=== PATIENT | male | born 1940 | race Caucasian/White ===

== ENCOUNTER → 2018-12-16 10:27 | Outpatient (CLI) | payer MEDICARE, OTHER, SELFPAY ==
--- NOTE | 2018-12-16 | DI.NM.S_ITS ---
PROCEDURE: [place] BONE SCAN WHOLE BODY RADIOPHARMACEUTICAL: 22.0 mCi Tc-99m MDP IV. INDICATIONS: PROSTATE CANCER TECHNIQUE: Delayed whole-body scintigrams were obtained approximately 3-4 hours after intravenous injection of radiotracer. Anterior and posterior views were acquired from vertex to feet. Additional left and right oblique views of the pelvis were obtained. COMPARISON: [place], [place], [place] BONE SCAN WHOLE BODY, 07/21/2018, 14:34. [facility], CT, CT CHEST ABD PEL W CON, 12/16/2018, 11:27. [place], [place], [place] BONE SCAN WHOLE BODY, 04/08/2018, 12:52. FINDINGS: Right paranasal tracer uptake is unchanged. Tracer activity at the right AC joint is most likely degenerative and grossly unchanged. There is also lower cervical presumed discogenic tracer uptake. No suspicious tracer activity. Physiologic tracer uptake seen within the kidneys and bladder. There is also bilateral hand and ankle as well as knee tracer activity which is most likely arthritic and appears slightly progressed. There is scattered presumed discogenic and degenerative facet tracer activity involving the thoracic and lumbar spine as before. IMPRESSION: Overall, grossly unchanged examination with no specific scintigraphic evidence for osseous metastatic disease. Dictated by: Troy Chen M.D. on 12/16/2018 at 17:06 Approved by: Troy Chen M.D. on 12/16/2018 at 17:10
--- NOTE | 2018-12-16 | DI.CT.S_ITS ---
PROCEDURE: CT CHEST ABD PEL W CON INDICATIONS: PROSTATE CANCER TECHNIQUE: After the administration of oral and intravenous contrast, 5 mm thick sections acquired from the lung apices to the symphysis. 5 mm coronal and sagittal reformats were performed, with additional 7 mm coronal MIP reformats through the lungs. For radiation dose reduction, the following was used: automated exposure control, adjustment of mA and/or kV according to patient size. COMPARISON: [facility], CT, CT CHEST ABDOMEN PELVIS WITH CONTRAST, 07/21/2018, 12:04. FINDINGS: Image quality: Excellent. CHEST: Lungs and pleura: Dependent atelectasis/scarring in posterior aspect of bilateral lower lobe is seen. 8mm subpleural sub-solid nodule in posterior-lateral right lung base is unchanged in size and appearance series 3 image 48. No new pulmonary nodule is seen. No acute airspace opacities. No pleural effusions or pneumothorax. Central and peripheral airways appear patent and normal in caliber. Mediastinum: Heart size is enlarged. No pericardial effusion. Enlarged lymph nodes are noted in mediastinal and bilateral hilar region measures up to 1.3 cm in short axis diameter a right paratracheal space and up to 1.5 cm in short axis diameter in right hilar region not significantly changed from prior study. Thoracic aorta and central pulmonary arteries are normal in size. Atherosclerotic calcifications throughout coronary vessels and thoracic aorta is seen. Pacemaker leads are noted in the region of right atrium and right ventricle. Esophagus is normal in caliber. There is a small hiatal hernia. Chest wall: No axillary or supraclavicular adenopathy by size criteria. Thyroid gland is within normal limits.. ABDOMEN: Solid organs: Liver is normal in size and enhancement. Gallbladder contains a single calcified stone with no gallbladder wall thickening or pericholecystic fluid.. Biliary system is non dilated. Pancreas enhances normally. Spleen is normal in size and enhancement. No adrenal nodules. Kidneys demonstrate normal size and enhancement, without hydronephrosis. Multiple bilateral renal cysts are seen, unchanged from prior study. Peritoneum and bowel: Bowel loops demonstrate normal wall thickness and caliber. No free fluid or air. Nodes and vessels: No retroperitoneal or mesenteric adenopathy by size criteria. Aorta and inferior vena cava are normal in size. Miscellaneous: No ventral hernias. PELVIS: Genitourinary: Bladder wall thickness is normal. Miscellaneous: No inguinal hernias or adenopathy. 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 Ankylosis of bilateral sacroiliac joints are again seen and unchanged. No suspicious bony lesions. No vertebral body compression fracture. IMPRESSION: 1. Stable sub-solid nodule in right lower lobe. No new pulmonary nodular mass is seen. 2. Mediastinal and right hilar mildly enlarged lymph nodes not significantly changed from prior study. 3. Cholelithiasis, no CT evidence of acute cholecystitis. 4. No definite bony metastasis is seen, please correlate with nuclear medicine bone scan findings. Dictated by: Ralph Roa M.D. on 12/16/2018 at 12:38 Approved by: Ralph Roa M.D. on 12/16/2018 at 13:33
== END ==
PROVIDERS: PCP Family Medicine; Visit Provider Specialist
DX: C61 Malignant neoplasm of prostate (principal); R91.1 Solitary pulmonary nodule; R59.9 Enlarged lymph nodes, unspecified; K80.80 Other cholelithiasis without obstruction
CPT/HCPCS: 71260; 74177; 78306; A9503; Q9967

== ENCOUNTER → 2019-07-02 08:52 | Outpatient (CLI) | payer MEDICARE, OTHER, SELFPAY ==
--- NOTE | 2019-07-02 | DI.NM.S_ITS ---
PROCEDURE: [place] BONE SCAN WHOLE BODY RADIOPHARMACEUTICAL: 21.8 mCi Tc-99m MDP IV. INDICATIONS: Malignant neoplasm of prostate TECHNIQUE: Delayed whole-body scintigrams were obtained approximately 3-4 hours after intravenous injection of radiotracer. Anterior and posterior views were acquired from vertex to feet. COMPARISON: [facility], CT, CT CHEST ABD PEL W CON, 12/16/2018, 11:27. [place], [place], [facility] WHOLE BODY BONE, 12/25/2017, 9:44. [place], [place] BONE SCAN WHOLE BODY, 04/08/2018, 12:52. [facility], CT, CT CHEST ABD PEL W CON, 07/02/2019, 9:42. [place], [place] BONE SCAN WHOLE BODY, 07/21/2018, 14:34. [place], [place] BONE SCAN WHOLE BODY, 12/16/2018, 14:02. FINDINGS: Increased uptake in the right paranasal air is unchanged and presumably secondary to paranasal sinus disease. No lesions are identified in calvarium, sternum, clavicles, scapulae, ribs, bony pelvis, and visualized shafts of the long bones. There are foci of increased uptake in cervical, thoracic and lumbar spine with distribution indistinguishable from degenerative disc and facet disease; early metastasis to spine could be obscured by degenerative changes. There are foci of increased periarticular activity involving shoulders, sternoclavicular joints, wrists, hands, hips, SI joints, knees, ankles and feet, compatible with degenerative/arthritic changes. IMPRESSION: Stable scan. No definitive osseous metastasis. Dictated by: Ingrid Mccall M.D. on 07/02/2019 at 14:26 Approved by: Ingrid Mccall M.D. on 07/06/2019 at 7:38
--- NOTE | 2019-07-02 | DI.CT.S_ITS ---
PROCEDURE: CT CHEST ABD PEL W CON INDICATIONS: Malignant neoplasm of prostate TECHNIQUE: After the administration of oral and intravenous contrast, 5 mm thick sections acquired from the lung apices to the symphysis. 5 mm coronal and sagittal reformats were performed, with additional 7 mm coronal MIP reformats through the lungs. For radiation dose reduction, the following was used: automated exposure control, adjustment of mA and/or kV according to patient size. COMPARISON: [place], [place], [place] BONE SCAN WHOLE BODY, 12/16/2018, 14:02. [place], [place], [place] BONE SCAN WHOLE BODY, 07/21/2018, 14:34. [facility], CT, CT CHEST ABDOMEN PELVIS WITH CONTRAST, 07/21/2018, 12:04. [facility], CT, CT CHEST ABD PEL WO CON, 04/08/2018, 9:23. [facility], [place], [place] WHOLE BODY BONE, 12/25/2017, 9:44. [facility], CT, CT CHEST ABD PEL W CON, 12/16/2018, 11:27. FINDINGS: Image quality: Excellent. CHEST: Lungs and pleura: No acute consolidation. Scattered scarring/atelectasis. Previously described sub-solid nodule involving the right lung bases less conspicuous or potentially resolved. No pleural effusions or pneumothorax. Central and peripheral airways appear patent and normal in caliber. Mediastinum: Heart size is enlarged. Coronary artery calcifications are present. No pericardial effusion. Unchanged appearance of mildly enlarged right hilar and mediastinal lymph nodes as before, since 12/16/18. Thoracic aorta and central pulmonary arteries are normal in size. Esophagus is normal in caliber. No hiatal hernia. Chest wall: No axillary or supraclavicular adenopathy by size criteria. Thyroid gland unremarkable. ABDOMEN: Solid organs: Diffuse fatty infiltration of the liver. The heart Gallbladder contracted otherwise unremarkable. Biliary system is non dilated. Pancreas enhances normally. Spleen is normal in size and enhancement. No adrenal nodules. Kidneys demonstrate normal size and enhancement, without hydronephrosis. Bilateral renal cysts are present, although some of these are technically too small to characterize accurately. No definite interval change. Peritoneum and bowel: Bowel loops demonstrate normal wall thickness and caliber. No free fluid or air. Nodes and vessels: No retroperitoneal or mesenteric adenopathy by size criteria. Aorta and inferior vena cava are normal in size. Miscellaneous: Fat-containing umbilical hernia PELVIS: Genitourinary: Bladder wall thickness is normal. Prostate brachytherapy seeds. Miscellaneous: No inguinal hernias or adenopathy. Bones: No suspicious bony lesions. No vertebral body compression fractures. Unchanged presumed bone island in the left acetabulum. Diffuse spondylosis and facet disease. IMPRESSION: Overall, grossly stable examination. Interval resolution of of previously seen right lower lobe sub-solid pulmonary nodule. Unchanged mediastinal and right hilar mildly large lymph nodes. Additional chronic and incidental findings as above. Dictated by: Troy Chen M.D. on 07/02/2019 at 10:47 Approved by: Troy Chen M.D. on 07/02/2019 at 11:00
== END ==
PROVIDERS: Family Provider Family Medicine; PCP Family Medicine; Visit Provider Specialist
DX: C61 Malignant neoplasm of prostate (principal); I25.10 Atherosclerotic heart disease of native coronary artery without angina pectoris; N28.1 Cyst of kidney, acquired; R59.0 Localized enlarged lymph nodes; I51.7 Cardiomegaly; K42.9 Umbilical hernia without obstruction or gangrene; M47.9 Spondylosis, unspecified
CPT/HCPCS: 71260; 74177; 78306; A9503; Q9967

== ENCOUNTER → 2020-12-08 09:59 | Outpatient (CLI) | payer MEDICARE, OTHER, SELFPAY ==
--- NOTE | 2020-12-08 10:00 | DI.NM.S_ITS ---
PROCEDURE: [place] BONE SCAN WHOLE BODY RADIOPHARMACEUTICAL: 21.1 mCi Tc-99m MDP IV. INDICATIONS: Prostate cancer TECHNIQUE: Delayed whole-body scintigrams were obtained approximately 3-4 hours after intravenous injection of radiotracer. Anterior and posterior views were acquired from vertex to feet. Additional left and right oblique views of the pelvis were obtained. COMPARISON: [place], [place], PET WHOLE BODY BONE, 12/25/2017, 9:44. [place], [place] BONE SCAN WHOLE BODY, 04/08/2018, 12:52. [place], [place] BONE SCAN WHOLE BODY, 07/21/2018, 14:34. [place] BONE SCAN WHOLE BODY, 12/16/2018, 14:02. [place] BONE SCAN WHOLE BODY, 07/02/2019, 12:22. [facility], CT, CT CHEST ABD PEL W CON, 12/08/2020, 10:16. FINDINGS: Increased uptake in the right maxillary area appears unchanged. 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 No lesions are identified in sternum, clavicles, scapulae, ribs, bony pelvis, and visualized shafts of the long bones. There are foci of mildly increased uptake in cervical, thoracic and lumbar spine with distribution indistinguishable from degenerative disc and facet disease; early metastasis to spine could be obscured by degenerative changes. Degenerative/arthritic changes as previously noted. IMPRESSION: 1. Stable bone scan. No definitive scintigraphic findings to suggest osseous metastasis. Dictated by: Ingrid Mccall M.D. on 12/08/2020 at 16:31 Approved by: Ingrid Mccall M.D. on 12/08/2020 at 17:30
--- NOTE | 2020-12-08 10:00 | DI.CT.S_ITS ---
PROCEDURE: CT CHEST ABD PEL W CON INDICATIONS: Prostate Cancer TECHNIQUE: After the administration of intravenous contrast, 5 mm thick sections acquired from the lung apices to the symphysis. 5 mm coronal and sagittal reformats were performed, with additional 7 mm MIP reformats through the lungs. For radiation dose reduction, the following was used: automated exposure control, adjustment of mA and/or kV according to patient size. COMPARISON: [facility], CT, CT CHEST ABDOMEN PELVIS WITH CONTRAST, 07/21/2018, 12:04. [facility], CT, CT CHEST ABD PEL WO CON, 04/08/2018, 9:23. [facility], CT, CT CHEST ABD PEL W CON, 07/02/2019, 9:42. [facility], [place], [place] BONE SCAN WHOLE BODY, 12/08/2020, 14:20. [facility], CT, CT CHEST ABD PEL W CON, 12/16/2018, 11:27. FINDINGS: Image quality: Excellent. CHEST: Lungs and pleura: There is a 6 mm ground-glass nodule in the right middle lobe (series 2, image 176), not definitively seen on the last exam. Right middle lobe and lower lobe opacities are most likely atelectasis. There are bibasilar atelectasis. Subpleural septal thickening and mild pulmonary fibrosis in lower lobes bilaterally. No acute airspace opacities. No pleural effusions or pneumothorax. Central and peripheral airways appear patent and normal in caliber. Mediastinum: There is mediastinal and right hilar lymphadenopathy, unchanged compared to the last exam. A 1.6 x 2.5 cm right paratracheal lymph node is again identified. There is a 1.0 x 1.4 cm AP window lymph node. A 1.3 x 2.0 cm lymph node is noted in the is occult esophageal recess. Prominent right hilar lymph nodes are also unchanged. A cluster of right hilar lymph nodes measures 1.8 x 1.9 cm. Heart size is moderately increased. No pericardial effusion. Severe coronary artery calcifications. There is a cardiac pacemaker. Thoracic aorta and central pulmonary arteries are normal in size. Esophagus is normal in caliber. There is a small hiatal hernia. Chest wall: A cardiac pacemaker is noted in the left anterior chest. No axillary or supraclavicular adenopathy by size criteria. Thyroid gland is not . ABDOMEN: Solid organs: Liver is normal in size and enhancement. Gallbladder contains a calcified gallstone. Biliary system is non dilated. Pancreas enhances normally. Spleen is normal in size and enhancement. No adrenal nodules. Kidneys demonstrate normal size and enhancement, without hydronephrosis. Multiple renal cysts are present bilaterally. Peritoneum and bowel: Bowel loops demonstrate normal wall thickness and caliber. No free fluid or air. Nodes and vessels: No retroperitoneal or mesenteric adenopathy by size criteria. Aorta and inferior vena cava are normal in size. Miscellaneous: Small fat containing umbilical hernia. PELVIS: Genitourinary: Bladder wall is mildly thickened concentrically. There are metallic implants in prostate. Miscellaneous: No inguinal hernias or adenopathy. Bones: No suspicious bony lesions. No vertebral body compression fractures. Degenerative changes are noted in thoracic and lumbar spine. IMPRESSION: 1. Stable mediastinal and right hilar lymphadenopathy. 2. A 6 mm ground-glass nodule is present in the right middle lobe, not definitively seen on the last exam. Recommend a short-term follow-up CT in 3 months. 3. Please see the body of the report for other nonurgent incidental findings. Dictated by: Ingrid Mccall M.D. on 12/08/2020 at 17:05 Approved by: Ingrid Mccall M.D. on 12/08/2020 at 17:15
== END ==
PROVIDERS: Family Provider Family Medicine; PCP Family Medicine; Referring Provider Specialist; Visit Provider Specialist
DX: C61 Malignant neoplasm of prostate (principal); R59.0 Localized enlarged lymph nodes; R91.1 Solitary pulmonary nodule
CPT/HCPCS: 71260; 74177; 78306; A9503; Q9967

== ENCOUNTER → 2021-01-26 11:04 | Outpatient (CLI) | payer MEDICARE, OTHER, SELFPAY ==
[2021-01-26 11:27] LABS: BUN Creatinine Ratio 32.1 (6-22); Blood Urea Nitrogen 44 mg/dL (9-20); Carbon Dioxide 33 mmol/L (22-32); Chloride 101 mmol/L (98-107); Estimated Glomerular Filt Rate 49.9 mL/min (>60); Glucose 141 mg/dL (80-110); HEMOLYSIS < 15 (0-50); Potassium 4.4 mmol/L (3.4-5.1); Sodium 141 mmol/L (137-145)
--- NOTE | 2021-01-26 11:39 | DI.CT.S_ITS ---
PROCEDURE: CT CHEST W CON INDICATIONS: Malignant neoplasm of prostate TECHNIQUE: After the administration of intravenous contrast, 5 mm thick sections acquired from the pulmonary apices to the posterior costophrenic angles. 1 mm axial lung, 5 mm thick coronal and sagittal reformats and 7 mm axial MIP were acquired. For radiation dose reduction, the following was used: automated exposure control, adjustment of mA and/or kV according to patient size. COMPARISON: [facility], CT, CT CHEST ABD PEL WO CON, 04/08/2018, 9:23. [facility], CT, CT CHEST ABD PEL W CON, 07/02/2019, 9:42. [facility], CT, CT CHEST ABD PEL W CON, 12/08/2020, 10:16. FINDINGS: Image quality: Excellent. Lungs and pleura: Subtle 6 mm ground-glass nodule is in the inferior aspect of the right upper lobe just above the right minor fissure, unchanged compared to the prior study. (146). There is eventration of the right hemidiaphragm and mild fibrotic changes are present at the lower lobes medially and in the extreme lung bases. No acute air space opacities. No pleural effusions or pneumothorax. Central and peripheral airways are patent and normal in caliber. Mediastinum: Mediastinal adenopathy is redemonstrated. Right paratracheal lymph node is stable. Subcarinal and mild right hilar adenopathy is unchanged. Heart size is enlarged. Pacemaker leads are present. Dense coronary artery calcification. No pericardial effusion. Thoracic aorta and central pulmonary arteries are normal in size. Esophagus is normal in caliber. Tiny hiatal hernia. Bones and chest wall: No suspicious bony lesions. No vertebral body compression fractures. No axillary or supraclavicular adenopathy by size criteria. Thyroid gland is unremarkable . Abdomen: There is cholelithiasis. Bilateral renal cysts and a tiny punctate nonobstructing upper pole calcification in the left kidney are stable. Upper abdominal bowel loops are normal in caliber. IMPRESSION: 1. There is a stable subtle ground-glass nodule which can be identified as far back as 04/08/18 without appreciable change. 2. There is stable mediastinal adenopathy. 3. No new findings. Dictated by: Charleen Su M.D. on 01/26/2021 at 16:23 Approved by: Charleen Su M.D. on 01/26/2021 at 16:33
== END ==
PROVIDERS: PCP Family Medicine; Referring Provider Specialist; Visit Provider Specialist
DX: C61 Malignant neoplasm of prostate (principal); R94.4 Abnormal results of kidney function studies; R91.1 Solitary pulmonary nodule; R59.0 Localized enlarged lymph nodes; I25.10 Atherosclerotic heart disease of native coronary artery without angina pectoris; K80.20 Calculus of gallbladder without cholecystitis without obstruction; N28.1 Cyst of kidney, acquired; Z95.0 Presence of cardiac pacemaker
CPT/HCPCS: 36415; 71260; 80048; Q9967

== ENCOUNTER → 2021-04-13 10:23 | Outpatient (CLI) | payer MEDICARE, OTHER, SELFPAY ==
--- NOTE | 2021-04-13 10:25 | DI.NM.S_ITS ---
PROCEDURE: [place] BONE SCAN WHOLE BODY RADIOPHARMACEUTICAL: 21.4 mCi Tc-99m MDP IV. INDICATIONS: Prostate Cancer TECHNIQUE: Delayed whole-body scintigrams were obtained approximately 3-4 hours after intravenous injection of radiotracer. Anterior and posterior views were acquired from vertex to feet. Additional left and right oblique views of the were obtained. COMPARISON: [place], [place] BONE SCAN WHOLE BODY, 12/08/2020, 14:20. [place], [place] BONE SCAN WHOLE BODY, 07/02/2019, 12:22. FINDINGS: No change has developed over the comparison to nuclear medicine bone scans, 12/08/20 and 07/02/19. A small focus of sclerosis is seen within the right maxillary bone, considered and osteoma. IMPRESSION: No evidence of prostate metastatic disease. Degenerative changes are stable at the shoulders, hip joints, and asymmetric but stable at the ankle joint regions, right greater than left. Also, stable asymmetric uptake at the right maxillary bone wary small osteoma is again noted. Dictated by: Rudolph Claros M.D. on 04/13/2021 at 15:42 Approved by: Rudolph Claros M.D. on 04/13/2021 at 15:45
--- NOTE | 2021-04-13 11:27 | DI.CT.S_ITS ---
PROCEDURE: CT CHEST ABD PEL W CON INDICATIONS: Prostate Cancer TECHNIQUE: After the administration of oral and intravenous contrast, 5 mm thick sections acquired from the lung apices to the symphysis. 5 mm coronal and sagittal reformats were performed, with additional 7 mm coronal MIP reformats through the lungs. For radiation dose reduction, the following was used: automated exposure control, adjustment of mA and/or kV according to patient size. COMPARISON: [facility], CT, CT CHEST W CON, 01/26/2021, 12:03. [facility], [place], [place] BONE SCAN WHOLE BODY, 12/08/2020, 14:20. [facility], CT, CT CHEST ABD PEL W CON, 12/08/2020, 10:16. FINDINGS: Image quality: Excellent. CHEST: Lungs and pleura: Stable 6 mm ground-glass nodule in the right middle lobe (series 2, image 170). Right middle lobe, right lower lobe and lingula atelectasis. Subpleural septal thickening bilaterally. No acute airspace opacities. No pleural effusions or pneumothorax. Central and peripheral airways appear patent and normal in caliber. Mediastinum: There is mediastinal and right hilar lymphadenopathy, unchanged. [employer] nodes are listed as the following Right paratracheal lymph node: 1.6 x 2.5 cm. AP window lymph node: 1.0 x 1.4 cm Subcarinal lymph node: 1.8 cm. Right hilar lymph node: 1.8 cm Heart size is moderately increased. There is severe coronary artery calcification. There is a cardiac pacemaker. No pericardial effusion. Thoracic aorta and central pulmonary arteries are normal in size. Esophagus is normal in caliber. A small hiatal hernia is present. Chest wall: No axillary or supraclavicular adenopathy by size criteria. Thyroid gland is normal. ABDOMEN: Solid organs: There is hepatic steatosis. Liver is normal in size and enhancement. Gallbladder contains a calcified gallstone. Biliary system is non dilated. Pancreas enhances normally. Spleen is normal in size and enhancement. No adrenal nodules. Kidneys demonstrate normal size and enhancement, without hydronephrosis. A 2 mm nonobstructive stone is seen in the left kidney. There is a 4.4 cm simple exophytic cyst in the right kidney and smaller cysts in kidneys bilaterally. Peritoneum and bowel: Bowel loops demonstrate normal wall thickness and caliber. No free fluid or air. Nodes and vessels: No retroperitoneal or mesenteric adenopathy by size criteria. Aorta and inferior vena cava are normal in size. Miscellaneous: There is a small fat containing umbilical hernia. PELVIS: Genitourinary: Bladder wall thickness is normal. Metallic implants are seen in prostate. Miscellaneous: No inguinal hernias or adenopathy. Bones: No suspicious bony lesions. No vertebral body compression fractures. There are degenerative changes in thoracic and lumbar spine. IMPRESSION: 1. Stable mediastinal and right hilar lymphadenopathy. 2. Stable 6 mm ground-glass nodule in the right middle lobe. 3. Cholelithiasis. 4. Moderate cardiomegaly and severe coronary artery atherosclerosis. 5. A 2 mm nonobstructive left renal stone. 6. Bilateral renal cortical cysts. 7. Small hiatal hernia. Dictated by: Ingrid Mccall M.D. on 04/13/2021 at 12:40 Approved by: Ingrid Mccall M.D. on 04/13/2021 at 16:34
== END ==
PROVIDERS: PCP Family Medicine; Referring Provider Specialist; Visit Provider Specialist
DX: C61 Malignant neoplasm of prostate (principal); R59.0 Localized enlarged lymph nodes; R91.1 Solitary pulmonary nodule; K80.20 Calculus of gallbladder without cholecystitis without obstruction; I51.7 Cardiomegaly; I25.10 Atherosclerotic heart disease of native coronary artery without angina pectoris; N20.0 Calculus of kidney; N28.1 Cyst of kidney, acquired; K44.9 Diaphragmatic hernia without obstruction or gangrene
CPT/HCPCS: 71260; 74177; 78306; A9503; Q9967

== ENCOUNTER → 2021-07-30 10:46 | Outpatient (CLI) | payer MEDICARE, OTHER, SELFPAY ==
--- NOTE | 2021-07-30 10:49 | DI.CT.S_ITS ---
PROCEDURE: CT CHEST WO CON INDICATIONS: pulmonary nodule TECHNIQUE: Noncontrast 2.0-2.5 mm thick sections acquired from the pulmonary apices to the posterior costophrenic angles. 7 mm thick axial MIP and 5 mm coronal and sagittal reformats were then acquired. A low radiation dose technique was utilized. COMPARISON: [facility], CT, CT CHEST ABD PEL W CON, 04/13/2021, 12:02. FINDINGS: Image quality: Diagnostic, given the low radiation dose technique. Lungs and pleura: Stable 6 mm ground-glass opacity, actually located inferiorly in the right upper lobe, and not in the right middle lobe. Reference previous image 171/2 and current images 155/3 and 58/5. Unchanged 1 mm pulmonary nodule, posterior aspect of the right upper lobe, near the major fissure. No new or increasing pulmonary nodules. Mediastinum: Mild cardiomegaly. No pericardial effusion. Advanced coronary artery calcifications. Pacemaker. Stable mediastinal and right hilar adenopathy, possibly inflammatory in nature.. Thoracic aorta and central pulmonary arteries are normal in size. Esophagus is normal in caliber. Small hiatal hernia. Bones and chest wall: No suspicious bony lesions. No vertebral body compression fractures. No axillary or supraclavicular adenopathy by size criteria. Thyroid gland is unremarkable as visualized . Abdomen: Small gallstones are present in the gallbladder. IMPRESSION: 1. Stable 6 mm ground-glass opacity, inferior aspect of right upper lobe. 2. Advanced coronary artery calcifications. 3. No new or increasing pulmonary nodules. 4. Gallstones. Fleischner Society criteria for SOLID lung nodule followup. Nodule size (mm)Low-risk patientHigh-risk patient<6 (single or multiple)No routine followup.Optional CT at 12 months. 6-8 (single or multiple)CT at 6-12 months, then optional CT at 18-24 mo.CT at 6-12 months, then CT at 18-24 months. >8 (single)CT at 3 months, PET-CT, or biopsy. Same as for low-risk pts. >8 (multiple)CT at 3-6 months, then optional CT at 18-24 mo.CT at 3-6 months, then CT at 18-24 months. Fleischner Society criteria for SUB-SOLID lung nodule followup. Solitary pure ground-glass nodules<6 mm (ground glass or part solid)No followup needed. 6 mm or larger (ground glass)CT at 6-12 months to confirm persistence, then CT every 2 years until 5 years.6 mm or larger (part solid)CT at 3-6 months to confirm persistence, then annual CT until 5 years if unchanged and solid component remains <6 mm. Multiple sub-solid nodules<6 mmCT at 3-6 months, then CT consider at 2 & 4 years for high risk patients. [address] at 3-6 months. Subsequent management based on most suspicious lesions. Recommendations do not apply to lung cancer screening, patients with immunosuppression, or patients with known primary cancer. Dictated by: Dillon Wilks M.D. on 07/30/2021 at 12:24 Approved by: Dillon Wilks M.D. on 07/30/2021 at 12:33
== END ==
PROVIDERS: PCP Internal Medicine; Referring Provider Internal Medicine Hematology & Oncology; Visit Provider Internal Medicine Hematology & Oncology
DX: R91.1 Solitary pulmonary nodule (principal); I25.10 Atherosclerotic heart disease of native coronary artery without angina pectoris; K80.20 Calculus of gallbladder without cholecystitis without obstruction
CPT/HCPCS: 71250

== ENCOUNTER → 2022-02-20 14:08 | Outpatient (CLI) | payer MEDICARE, OTHER, SELFPAY ==
[2022-02-20 15:04] LABS: COVID19 -Nasal RAPID Negative (Negative)
== END ==
PROVIDERS: PCP Internal Medicine; Visit Provider Nurse Practitioner Family
DX: Z20.822 Contact with and (suspected) exposure to COVID-19 (principal)
CPT/HCPCS: 87635; C9803

== ENCOUNTER 2022-02-21 06:09 | Day surgery (SDC) | payer MEDICARE, OTHER, SELFPAY ==
[2022-02-19 07:39] VITALS: BMI 27.8
--- NOTE | 2022-02-21 | PATH_ITS ---
[facility] Accession Number: [id number] . 01 Material submitted: . thumb - RIGHT THUMB ARTHRITIS . 01 Diagnosis: Right Thumb Arthritis, Excision: Features of gouty tophus. No evidence of neoplasm. MRV 02/26/2022 1307 Local . 01 Electronically signed: . Nico Estrada MD, PhD, Pathologist NPI- [id number] . 01 Gross description: . Received in one part. . Received in formalin, labeled Crescencio Quinn and designated 1. Right thumb arthritis, is a 4.0 x 4.0 x 1.5 cm aggregate of multiple 1.5-3.5 cm portions of yellow-moore, irregular, rubbery tissue fragments with scattered areas of moore-white chalky debris. No additional lesions are identified. Expansion Envelope Maker Hand sections are submitted in cassette A1. (AMINATA:[id number]) /FRR 02/23/2022 1801 Local . 01 Pathologist provided ICD-10: M79.644, M10.9 . 01 CPT . 032579 Specimen Comment: A courtesy copy of this report has been sent to [phone], [phone] Specimen Comment: [id number] Performed at: 01 [facility] [address] [place] [address] [address] [facility]– [place], [place], [place] [id number] MD Jose Cruz Bethea MD Phone: [phone]
[2022-02-21 06:58] VITALS: BP 142/79; PULSE 60; RESP 16; TEMP 36.1; O2SAT 98; BMI 27.8
--- NOTE | 2022-02-21 07:33 | PM.PREOP ---
Pre-operative Note COVID-19 Criteria for continued procedure: Possibility delay results in more complex future surgery or treatment, Increased loss of function, Continuing or worsening of significant or severe pain and Delay expected to result in less-positive ultimate med/surg outcome Interval Note History & Physical reviewed/Exam performed by Physician: Yes Changes to H&P: No
[2022-02-21] MEDS: LACTATED RINGERS 1,000 ML 42 ML IV (07:36)
[2022-02-21] MEDS: CEFAZOLIN 2 GM/20 ML SYRINGE IV (07:52)
[2022-02-21] MEDS: BUPIVACAINE 0.5% (PF) 30 ML, EPINEPHrine 0.15 MG INJ (08:11)
--- NOTE | 2022-02-21 08:13 | SUR.OPER ---
Supine on padded OR bed, head on pillow, nonoperative arm secured on padded arm board at <90 degrees abduction, operative arm on hand table, legs uncrossed, safety belt at thigh, tape over blanket over lower legs.
[2022-02-21 09:31] VITALS: BP 120/74; PULSE 68; RESP 15; TEMP 36; O2SAT 88
[2022-02-21 09:35] VITALS: BP 121/73; PULSE 68; RESP 15; O2SAT 95
[2022-02-21 09:45] VITALS: BP 113/78; PULSE 59; RESP 15; O2SAT 94
[2022-02-21 09:50] VITALS: BP 115/63; PULSE 59; RESP 15; O2SAT 99
--- NOTE | 2022-02-21 09:51 | P.OP_ITS ---
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 Closure Type: primary Specimen(s): other (Gouty tophi sent to pathology) Applied: implant(s) (7 hole plate) Estimated Blood Loss (mL): 5 Tourniquet time (min): 79 Procedure in detail: On date of Service, patient was met in holding area where his operative site was signed and witnessed by the OR staff. Surgeries once again discussed with the patient and any remaining questions or concerns he had were answered fully. Patient was taken back to the operating theater and placed on the operating table in a supine position. Great care was taken to ensure that all bony prominences were appropriately padded. Well-padded tourniquet was placed up along the upper extremity. Time-out was performed verifying patient's name, procedure, and operative site. Right arm was prepped and draped in the normal sterile fashion. Dorsal incision was made centered over the MCP joint of thumb. Fifteen blade was used to incise through skin and fascial tissue. As mentioned above, patient had extensive g outy tophi involving the thumb. Large deposits both in the joint as well as dorsal to the joint involving soft tissue as well as the extensor tendons. Using the 15 blade sharp dissection and excision was performed removing the gouty tophi. Some of this was sent to pathology. Sharp dissection was used and 2 we were able to remove the majority of the gouty deposits. Rongeur was then used to debride out any remaining gouty deposits. Copious irrigation was used to irrigate to the soft tissue and joint removing as much of the gout as possible. Once we excised as much as the gout as possible, a bur was used to remove any remaining our articular surface to the MCP joint until we had good bleeding bony surfaces. The thumb was reduced with about 30? of flexion and a K-wire was placed for provisional fixation. C-arm was used to verify the position of the MCP joint for fusion. Once we were satisfied with the positioning, a 7 hole plate was bent to the appropriate shape and fixated to both the proximal phalanx as well as the metacarpal. Rongeur was used to take some bone graft from dorsal aspect of the MCP joint. This bone graft was then packed in around joint. Final x-rays were obtained showing good positioning of the plate as well as the screws. Wound was then closed in a layered fashion patient was placed into a splint and taken to the PACU in stable condition. Complications: none Post-operative Condition: stable Disposition: PACU Plan for aftercare: Patient will be immobilized in the splint for 2 weeks. Patient will be then converted to a thumb spica removable brace.
== END 2022-02-21 10:34 | disposition home or self-care (01) ==
PROVIDERS: PCP Internal Medicine; Referring Provider Orthopaedic Surgery; Visit Provider Orthopaedic Surgery
PROC: (CPT 26540; principal; 2022-02-21 07:45)
DX: M1A.9XX1 Chronic gout, unspecified, with tophus (tophi) (principal); M19.041 Primary osteoarthritis, right hand; I48.91 Unspecified atrial fibrillation; I11.0 Hypertensive heart disease with heart failure; I50.9 Heart failure, unspecified; I25.10 Atherosclerotic heart disease of native coronary artery without angina pectoris; E11.9 Type 2 diabetes mellitus without complications; Z95.0 Presence of cardiac pacemaker; G47.33 Obstructive sleep apnea (adult) (pediatric); Z79.01 Long term (current) use of anticoagulants; Z79.84 Long term (current) use of oral hypoglycemic drugs
CPT/HCPCS: 26850; 85610; J0171; J0690; J2250; J2704; J3010

== ENCOUNTER → 2022-04-23 08:42 | Outpatient (CLI) | payer MEDICARE, OTHER, SELFPAY ==
--- NOTE | 2022-04-23 08:43 | DI.NM.S_ITS ---
PROCEDURE: SD BONE SCAN WHOLE BODY RADIOPHARMACEUTICAL: 19.5 mCi Tc-99m MDP IV. INDICATIONS: Prostate CA TECHNIQUE: Delayed whole-body scintigrams were obtained approximately 3-4 hours after intravenous injection of radiotracer. Anterior and posterior views were acquired from vertex to feet. COMPARISON: [facility], CT, CT CHEST ABD PEL W CON, 04/13/2021, 12:02. [facility], CT, CT CHEST WO CON, 07/30/2021, 10:53. [place], [place] BONE SCAN WHOLE BODY, 07/02/2019, 12:22. [place] BONE SCAN WHOLE BODY, 12/08/2020, 14:20. [place] BONE SCAN WHOLE BODY, 04/13/2021, 14:13. FINDINGS: There is a focal uptake in the right paranasal area, unchanged. No lesions are identified in calvarium, sternum, clavicles, scapulae, ribs, bony pelvis, and visualized shafts of the long bones. There are foci of mildly increased uptake in cervical, thoracic and lumbar spine with distribution indistinguishable from degenerative disc and facet disease; early metastasis to spine could be obscured by degenerative changes. There are foci of increased periarticular activity involving shoulders, sternoclavicular joints (left greater than right), wrists, hands, hips, SI joints, knees, ankles and feet, compatible with degenerative or arthritic changes. Mildly distended urinary bladder, which partially obscure pelvis. IMPRESSION: 1. Stable bone scan. No definitive scintigraphic findings to suggest osseous metastasis. Dictated by: Ingrid Mccall M.D. on 04/23/2022 at 14:48 Approved by: Ingrid Mccall M.D. on 04/23/2022 at 14:53
[2022-04-23 14:40] LABS: HEMOLYSIS < 15 (0-50); Prostate Specific Antigen 18.3 ng/mL (0.10-4.00)
[2022-04-23 14:48] LABS: BUN Creatinine Ratio 21.3 (6-22); Blood Urea Nitrogen 35 mg/dL (9-20); Calcium 9.6 mg/dL (8.4-10.2); Carbon Dioxide 27 mmol/L (22-32); Chloride 103 mmol/L (98-107); Estimated Glomerular Filt Rate 42 mL/min (>60); Glucose 123 mg/dL (80-110); Potassium 4.4 mmol/L (3.4-5.1); Sodium 141 mmol/L (137-145)
== END ==
PROVIDERS: PCP Internal Medicine; Referring Provider Specialist; Visit Provider Specialist
DX: C61 Malignant neoplasm of prostate (principal); R97.20 Elevated prostate specific antigen [PSA]; N40.0 Benign prostatic hyperplasia without lower urinary tract symptoms
CPT/HCPCS: 36415; 78306; 80048; 84153; A9503

== ENCOUNTER → 2022-04-24 10:09 | Outpatient (CLI) | payer MEDICARE, OTHER, SELFPAY ==
--- NOTE | 2022-04-24 10:10 | DI.CT.S_ITS ---
PROCEDURE: CT CHEST ABD PEL W CON INDICATIONS: prostate cancer TECHNIQUE: After the administration of oral and intravenous contrast, axial sections acquired from the supraclavicular neck to the pubic symphysis. Coronal and sagittal reformats were performed. For radiation dose reduction, the following was used: automated exposure control, adjustment of mA and/or kV according to patient size. COMPARISON: [facility], CT, CT CHEST ABD PEL W CON, 04/13/2021, 12:02. FINDINGS: Image quality: Excellent. CHEST: Lower Neck: No enlarged lymph nodes. Thyroid: Within normal limits. Axillae: No enlarged lymph nodes. Chest Wall: Unremarkable. Lungs and Airways: No change in moderate right and mild left bibasilar scarring. There is significant volume loss involving the right middle lobe, as before. 6 mm ground-glass nodule within the right upper lobe inferiorly adjacent to the minor fissure is unchanged. Mild reticulonodular interstitial pulmonary opacity within the bilateral lung bases posteriorly is unchanged. Pleura: No pneumothorax or pleural effusions. Heart: Heart size is enlarged. Severe calcification of the coronary vasculature is present. No pericardial effusion. Thoracic Vessels: The aorta and pulmonary arteries demonstrate normal size. Mediastinum and Thelma: 11 mm short axis right paratracheal adenopathy is unchanged. 20 mm short axis precarinal adenopathy is unchanged. 14 mm short axis subcarinal adenopathy is unchanged. Esophagus: No wall thickening. No hiatal hernia. ABDOMEN: Liver: Unremarkable. Gallbladder: Surgically absent Biliary ducts: Unremarkable. Pancreas: Unremarkable. Spleen: Unremarkable. Adrenal Glands: Unremarkable. Kidneys and Ureters: Bilateral renal cysts are present. Stomach and Bowel: Stomach, small bowel loops, and colon are unremarkable. Peritoneum: No abnormal intraperitoneal fluid. No free air. Ventral Wall: 24 mm diameter fat containing umbilical hernia. Abdominal Nodes: No retroperitoneal or mesenteric adenopathy by size criteria. Vessels: Aorta and inferior vena cava are normal in size. PELVIS: Pelvic Organs: Multiple seeds within the prostate are present. Bladder: Unremarkable. Pelvic Nodes: No enlarged lymph nodes. Miscellaneous: No inguinal hernias are seen. Bones: Unremarkable. IMPRESSION: 1. No change in mediastinal adenopathy. 2. No change in ground-glass nodule within the right upper lobe. 3. No change in significant volume loss involving the right middle lobe. 4. No change in cardiomegaly and coronary artery disease. 5. No change in small fat containing umbilical hernia. Dictated by: Bam Fernandez M.D. on 04/24/2022 at 11:38 Approved by: Bam Fernandez M.D. on 04/24/2022 at 11:43
== END ==
PROVIDERS: PCP Internal Medicine; Referring Provider Specialist; Visit Provider Specialist
DX: C61 Malignant neoplasm of prostate (principal); I51.7 Cardiomegaly; I25.10 Atherosclerotic heart disease of native coronary artery without angina pectoris; R59.0 Localized enlarged lymph nodes; N28.1 Cyst of kidney, acquired; R91.1 Solitary pulmonary nodule; K42.9 Umbilical hernia without obstruction or gangrene; Z90.49 Acquired absence of other specified parts of digestive tract
CPT/HCPCS: 71260; 74177; Q9967

== ENCOUNTER → 2023-05-05 09:58 | Outpatient (CLI) | payer MEDICARE, OTHER, SELFPAY ==
--- NOTE | 2023-05-06 02:52 | DI.NM.S_ITS ---
DATE OF SERVICE: 05/05/2023 PROCEDURE: Pharmacological perfusion study. INDICATIONS: Shortness of breath with underlying multivessel coronary artery disease, AFib, pacemaker. RADIOPHARMACEUTICAL: 25 millicurie technetium-99m Myoview IV was injected at stress and 12.6 millicurie technetium-99m Myoview IV was injected at rest. CARDIAC STRESS: The patient underwent IV Lexiscan perfusion study under the supervision of an attending staff using standard IV Lexiscan as per protocol. The patient remained hemodynamically stable. Baseline blood pressure 120/70. Baseline rhythm, ventricular paced rhythm with underlying AFib. During stress no new convincing ischemic changes or arrhythmias seen. No chest pain. The patient had minimal dyspnea. RAW DATA: There is increased subdiaphragmatic activity. The patient's weight is 188 pounds. GATED STUDY: Resting LV ejection fraction 68 and stress LV ejection fraction 72%. I do not see any significant wall motion abnormalities. Resting end-diastolic volume 146 mL. TID ratio 1.03, which is within normal limits. Lung/heart ratio 0.34, which is within normal limits. MYOCARDIAL PERFUSION SCAN: Stress supine, resting supine, and stress prone images were compared to each other. Stress supine and resting supine images revealed moderate-size, moderate to severely decreased perfusion of basal inferior wall extending into the basal inferolateral, distal inferolateral, inferior apex, as well as distal anteroseptal wall. During stress prone images, the majority of the perfusion defect got normalized except inferoapical part which persisted as well as distal anteroseptum. No reversible ischemia. CONCLUSION: 1. No obvious reversible ischemia. 2. A small size, persistent severe perfusion defect of inferoapex and distal anteroseptal wall. This could be due to pacemaker activation; however, a small infarction in that area cannot be ruled out. Overall preserved left ventricular function. Significant improvement of rest of the perfusion defect suggests element of diaphragmatic tissue attenuation artifact, as well. In view of preserved left ventricular function without any significant reversible ischemia, overall low-risk myocardial perfusion scan. Crescencio Quinn - EDUARD/nicolasa/tabatha doc#: [id number]/job#: [id number] dd: 05/05/2023 17:02:00 dt: 05/06/2023 02:44:00 DICTATING MD/COPIES TO: Jose D Gilbert MD COPIES MNE: JONES;
== END ==
PROVIDERS: PCP Internal Medicine; Referring Provider Internal Medicine Cardiovascular Disease; Visit Provider Internal Medicine Cardiovascular Disease
DX: I20.8 Other forms of angina pectoris (principal); R06.02 Shortness of breath; I48.91 Unspecified atrial fibrillation; Z95.0 Presence of cardiac pacemaker
CPT/HCPCS: 78452; 93017; A9502; J2785

== ENCOUNTER → 2023-12-25 10:36 | Outpatient (CLI) | payer MEDICARE, OTHER, SELFPAY | PROVIDERS: PCP Internal Medicine; Referring Provider Internal Medicine Cardiovascular Disease; Visit Provider Internal Medicine Cardiovascular Disease | DX: R06.02 Shortness of breath (principal); J98.8 Other specified respiratory disorders | CPT/HCPCS: 94010; 94726; 94729 ==

== ENCOUNTER → 2024-02-02 10:18 | Outpatient (CLI) | payer MEDICARE, OTHER, SELFPAY ==
--- NOTE | 2024-02-02 10:19 | DI.CT.S_ITS ---
PROCEDURE: CT CHEST HIGH RESOLUTION INDICATIONS: Restrictive lung dz, eval for interstitial lung dz TECHNIQUE: Noncontrast 1.0 and 5.0 mm thick contiguous axial sections from the pulmonary apex to the posterior costophrenic angles, with 7 mm thick coronal and sagittal MIP reformats. 1 mm thick dynamic expiratory images acquired through the upper, mid, and lower lungs. 1.0 mm thick axial sections acquired from the greg to the posterior costophrenic angles in the prone end-inspiration position. For radiation dose reduction, the following was used: automated exposure control, adjustment of mA and/or kV according to patient size. COMPARISON: [facility], , CT PET SKULL BASE TO MID THIGH, 06/17/2022, 15:45. FINDINGS: Image quality: Diagnostic. Lower Neck: No enlarged lymph nodes. Thyroid: No thyroid nodules which require sonographic follow up, per consensus guidelines. Axillae: No enlarged lymph nodes. Chest Wall: Left chest wall generator with cardiac leads. Bones: Diffuse idiopathic skeletal hyperostosis. Lungs and Pleura: Basilar predominant reticulation without subpleural sparing. No honeycombing. Mild bronchiectasis. Trace effusions, right greater than left. Heart: Heart size is enlarged. No pericardial effusion. Thoracic Vessels: Dilated main pulmonary artery. Mediastinum and Thelma: No enlarged lymph nodes. Esophagus: No wall thickening. Small hiatal hernia. Upper Abdomen: Visualized upper abdomen solid organs and bowel loops appear normal. IMPRESSION: Mild basilar reticulation without honeycombing, air trapping or ground-glass. Probable UIP pattern of interstitial lung disease. Recommend pulmonology referral. Dilated main pulmonary artery, suggestive of pulmonary hypertension. Dictated by: Giovani Mansfield M.D. on 02/02/2024 at 11:30 Approved by: Giovani Mansfield M.D. on 02/02/2024 at 11:46
== END ==
PROVIDERS: PCP Internal Medicine; Referring Provider Internal Medicine Critical Care Medicine; Visit Provider Internal Medicine Critical Care Medicine
DX: J98.4 Other disorders of lung (principal); J47.9 Bronchiectasis, uncomplicated; I51.7 Cardiomegaly; K44.9 Diaphragmatic hernia without obstruction or gangrene
CPT/HCPCS: 71250